=== PATIENT | male | born 1945 | race Caucasian/White ===

== ENCOUNTER 2019-05-22 05:40 | Outpatient (CLI) | payer MEDICARE ==
[~2019-05-22] VITALS: Ht 182 cm; Wt 109.0 kg
[2019-05-22] MEDS ORDERED: LISI2.5T PO (15:21)
== END 2019-05-22 15:27 | disposition home or self-care (01) ==
LOC: PREOP 05:40
PROVIDERS: ATTEND Specialist
DX: Z01.818 Encounter for other preprocedural examination (principal)

== ENCOUNTER 2019-05-24 06:52 | Day surgery (SDC) | payer MEDICARE ==
[~2019-05-24] VITALS: Ht 182 cm; Wt 109.0 kg
[~2019-05-24 06:52] MED LIST: LISI2.5T PO
[2019-05-24 06:57] VITALS: BP 118/77
[2019-05-24] MEDS ORDERED: MOXIFLOXACIN OPHTH SOLN 5 MG/ML 0.3 ML SYRINGE OP ONE (07:00)
[2019-05-24] MEDS ORDERED: TIMOLOL MALEATE 0.5% 5 ML (TIMOPTIC) BTL OU PRN (07:00)
[2019-05-24] MEDS ORDERED: LIDOCAINE PF 1% 2 ML VIAL IR PRN (07:00)
[2019-05-24] MEDS ORDERED: POVIDONE (BETADINE) OPHTH SOLN 5% 30 ML OP ONE (07:00)
[2019-05-24] MEDS: TETRACAINE 0.5% OPHTH SOLN 4 ML BTL (SINGLE DOSE ONLY) OU PRN ×4 (07:03→07:25)
[2019-05-24] MEDS: CYCLOPENTOLATE 1% (CYCLOGYL) 2 ML DROPS OP SCH ×3 (07:15→07:25)
[2019-05-24] MEDS: PHENYLEPHRINE 10% OPHTH (NEO-SYN) 5 ML BTL OU SCH ×3 (07:15→07:25)
--- NOTE | 2019-05-24 08:25 | Ophthalmologist Pre-Op Note ---
Pre-Operative Progress Note H&P Reviewed The H&P was reviewed, patient examined and no changes noted. Date H&P Reviewed: May 24, 2019 Time H&P Reviewed: 08:24 Pre-Op Dx Cataract, Right Eye CHRISTOPH CISNEROS MD May 24, 2019 08:25
[2019-05-24] MEDS ORDERED: MIDAZOLAM 2 MG/2 ML (VERSED) VIAL ONE (08:27)
[2019-05-24] MEDS ORDERED: acetaZOLAMIDE ER 500 MG CAP (DIAMOX SEQUELS) PO ONE (08:30)
--- NOTE | 2019-05-24 08:52 | Ophthalmology Operative Report ---
Cataract removal/placement IOL PREOPERATIVE DIAGNOSIS: Cataract Right Eye POSTOPERATIVE DIAGNOSIS: Cataract Right Eye PROCEDURE: Cataract removal and placement of posterior chamber implant, right eye SURGEON: Mario Cisneros ANESTHESIA: Topical with sedation COMPLICATIONS: None ESTIMATED BLOOD LOSS: Minimal DESCRIPTION OF PROCEDURE: After proper informed consent was obtained, the patient, a 74 male, was taken to the Operating Room and the right eye was anesthetized with tetracaine. The right eye was then prepped and draped in the usual manner. A wire lid speculum was placed. A paracentesis was made at the left hand position. Preservative free lidocaine was injected into the anterior chamber followed by viscoelastic. A clear corneal incision was made in the temporal position. A capsulorrhexis was preformed and the central nuclear and cortical material were removed. The posterior capsule was polished and Kemal 20.5 AU00T0 IOL was placed into the capsular bag. The residual viscoelastic was aspirated and balanced saline solution was injected into the anterior chamber. Moxifloxacin was injected into the anterior chamber. The wound was checked and found to be water tight. The patient tolerated the procedure well without complications. MARIO CISNEROS MD May 24, 2019 08:52
[2019-05-24 08:58] VITALS: BP 127/82
--- NOTE | 2019-05-24 14:25 | Anesthesia-General Post-Op ---
MAC Patient Condition Mental Status/LOC: Same as Preop Cardiovascular: Satisfactory Nausea/Vomiting: Absent Respiratory: Satisfactory Pain: Controlled Complications: Absent Post Op Complications Complications None Follow Up Care/Instructions Patient Instructions None needed. Anesthesiology Discharge Order Discharge Order Patient is doing well, no complaints, stable vital signs, no apparent adverse anesthesia problems. No complications reported per nursing. PINA SINGH CRNA May 24, 2019 14:25
== END 2019-05-24 08:58 | disposition home or self-care (01) ==
LOC: SDC 06:52
PROVIDERS: ATTEND Specialist
DX: H25.11 Age-related nuclear cataract, right eye (principal); I10 Essential (primary) hypertension; E66.9 Obesity, unspecified; M19.90 Unspecified osteoarthritis, unspecified site; Z68.32 Body mass index [BMI] 32.0-32.9, adult; Z87.891 Personal history of nicotine dependence; Z90.89 Acquired absence of other organs; Z83.518 Family history of other specified eye disorder; Z80.0 Family history of malignant neoplasm of digestive organs; Z83.3 Family history of diabetes mellitus

== ENCOUNTER 2019-06-07 09:21 | Day surgery (SDC) | payer MEDICARE ==
[~2019-06-07] VITALS: Ht 182.9 cm; Wt 109.0 kg
[2019-06-07] MEDS ORDERED: LIDOCAINE PF 1% 2 ML VIAL IR PRN (09:30)
[2019-06-07] MEDS ORDERED: POVIDONE (BETADINE) OPHTH SOLN 5% 30 ML OP ONE (09:30)
[2019-06-07] MEDS ORDERED: TIMOLOL MALEATE 0.5% 5 ML (TIMOPTIC) BTL OU PRN (09:30)
[2019-06-07] MEDS ORDERED: MOXIFLOXACIN OPHTH SOLN 5 MG/ML 0.3 ML SYRINGE OP ONE (09:30)
[2019-06-07] MEDS: TETRACAINE 0.5% OPHTH SOLN 4 ML BTL (SINGLE DOSE ONLY) OU PRN ×4 (09:30→09:51)
[2019-06-07 09:36] VITALS: BP 121/84
[2019-06-07] MEDS: PHENYLEPHRINE 10% OPHTH (NEO-SYN) 5 ML BTL OU SCH ×3 (09:39→09:51)
[2019-06-07] MEDS: CYCLOPENTOLATE 1% (CYCLOGYL) 2 ML DROPS OP SCH ×3 (09:39→09:51)
[2019-06-07] MEDS ORDERED: MIDAZOLAM 2 MG/2 ML (VERSED) VIAL ONE (10:09)
--- NOTE | 2019-06-07 10:10 | Ophthalmologist Pre-Op Note ---
Pre-Operative Progress Note H&P Reviewed The H&P was reviewed, patient examined and no changes noted. Date H&P Reviewed: Jun 07, 2019 Time H&P Reviewed: 10:10 Pre-Op Dx Cataract, Left Eye CHRISTOPH CISNEROS MD Jun 07, 2019 10:10
[2019-06-07] MEDS ORDERED: acetaZOLAMIDE ER 500 MG CAP (DIAMOX SEQUELS) PO ONE (10:30)
--- NOTE | 2019-06-07 10:35 | Ophthalmology Operative Report ---
Cataract removal/placement IOL PREOPERATIVE DIAGNOSIS: Cataract Left Eye POSTOPERATIVE DIAGNOSIS: Cataract Left Eye PROCEDURE: Cataract removal and placement of posterior chamber implant, left eye SURGEON: Mario Cisneros ANESTHESIA: Topical with sedation COMPLICATIONS: None ESTIMATED BLOOD LOSS: Minimal DESCRIPTION OF PROCEDURE: After proper informed consent was obtained, the patient, a 74 male, was taken to the Operating Room and the left eye was anesthetized with tetracaine. The left eye was then prepped and draped in the usual manner. A wire lid speculum was placed. A paracentesis was made at the left hand position. Preservative free lidocaine was injected into the anterior chamber followed by viscoelastic. A clear corneal incision was made in the temporal position. A capsulorrhexis was preformed and the central nuclear and cortical material were removed. The posterior capsule was polished and an Kemal 21.0 AU00T0 was placed into the capsular bag. The residual viscoelastic was aspirated and balanced saline solution was injected into the anterior chamber. Moxifloxacin was injected into the anterior chamber. The wound was checked and found to be water tight. The patient tolerated the procedure well without complications. MARIO CISNEROS MD Jun 07, 2019 10:35
[2019-06-07 10:42] VITALS: BP 112/76
--- NOTE | 2019-06-07 13:56 | Anesthesia-General Post-Op ---
MAC Patient Condition Mental Status/LOC: Same as Preop Cardiovascular: Satisfactory Nausea/Vomiting: Absent Respiratory: Satisfactory Pain: Controlled Complications: Absent Post Op Complications Complications None Follow Up Care/Instructions Patient Instructions None needed. Anesthesiology Discharge Order Discharge Order Patient is doing well, no complaints, stable vital signs, no apparent adverse anesthesia problems. No complications reported per nursing. CHANTE MARIA CRNA Jun 07, 2019 13:56
--- OUTSIDE RECORDS SUMMARY | 2019-06-11 07:31 | XMS REPORT | Continuity of Care Document ---
Author Organization Unknown Address Unknown Phone Unavailable Allergies Active Description Code Type Severity Reaction Onset Reported/Identified Relationship to Patient Clinical Status Yes No Known Drug Allergies [id number] Drug Allergy Unknown N/A 05/22/2019 Medications There is no data. Problems Date Dx Coded Attending Type Code Diagnosis Diagnosed By 05/22/2019 CHRISTOPH CISNEROS MD, Ot Z01.818 ENCOUNTER FOR OTHER PREPROCEDURAL EXAMIN 05/24/2019 CHRISTOPH CISNEROS MD, Ot E66 .9 OBESITY, UNSPECIFIED 05/24/2019 CHRISTOPH CISNEROS MD, Ot H25.11 AGE-RELATED NUCLEAR CATARACT, RIGHT EYE 05/24/2019 CHRISTOPH CISNEROS MD Ot I10 ESSENTIAL (PRIMARY) HYPERTENSION 05/24/2019 CHRISTOPH CISNEROS MD Ot M19.90 UNSPECIFIED OSTEOARTHRITIS, UNSPECIFIED 05/24/2019 CHRISTOPH CISNEROS MD Ot Z68.32 BODY MASS INDEX (BMI) 32.0-32.9, ADULT 05/24/2019 CHRISTOPH CISNEROS MD Ot Z80 .0 FAMILY HISTORY OF MALIGNANT NEOPLASM OF 05/24/2019 CHRISTOPH CISNEROS MD Ot Z83 .3 FAMILY HISTORY OF DIABETES MELLITUS 05/24/2019 CHRISTOPH CISNEROS MD Ot Z83.518 FAMILY HISTORY OF OTHER SPECIFIED EYE DI 05/24/2019 CHRISTOPH CISNEROS MD Ot Z87.891 PERSONAL HISTORY OF NICOTINE DEPENDENCE 05/24/2019 CHRISTOPH CISNEROS MD Ot Z90.89 ACQUIRED ABSENCE OF OTHER ORGANS 05/29/2019 CHRISTOPH CISNEROS MD, Ot E66 .9 OBESITY, UNSPECIFIED 05/29/2019 CHRISTOPH CISNEROS MD Ot H25.11 AGE-RELATED NUCLEAR CATARACT, RIGHT EYE 05/29/2019 CHRISTOPH CISNEROS MD Ot I10 ESSENTIAL (PRIMARY) HYPERTENSION 05/29/2019 CHRISTOPH CISNEROS MD Ot M19.90 UNSPECIFIED OSTEOARTHRITIS, UNSPECIFIED 05/29/2019 CHRISTOPH CISNEROS MD Ot Z68.32 BODY MASS INDEX (BMI) 32.0-32.9, ADULT 05/29/2019 CHRISTOPH CISNEROS MD, Ot Z80 .0 FAMILY HISTORY OF MALIGNANT NEOPLASM OF 05/29/2019 CHRISTOPH CISNEROS MD, Ot Z83 .3 FAMILY HISTORY OF DIABETES MELLITUS 05/29/2019 CHRISTOPH CISNEROS MD, Ot Z83.518 FAMILY HISTORY OF OTHER SPECIFIED EYE DI 05/29/2019 CHRISTOPH CISNEROS MD, Ot Z87.891 PERSONAL HISTORY OF NICOTINE DEPENDENCE 05/29/2019 CHRISTOPH CISNEROS MD, Ot Z90.89 ACQUIRED ABSENCE OF OTHER ORGANS Procedures There is no data. Results There is no data. Encounters ACCT No. Visit Date/Time Discharge Status Pt. Type Provider Facility Loc./Unit Complaint [id number] 06/07/2019 09:21:00 020 10:43:00 DIS Outpatient CHRISTOPH CISNEROS MD [facility] CATARACT LEFT EYE [id number] 05/24/2019 06:52:00 020 23:59:59 CLS Outpatient CHRISTOPH CISNEROS MD [facility] CATARACT RIGHT EYE [id number] 05/22/2019 05:40:00 020 15:27:00 DIS Outpatient CHRISTOPH CISNEROS MD Via [facility] PREOP CATARACT RIGHT EYE
== END 2019-06-07 10:43 | disposition home or self-care (01) ==
LOC: SDC 09:21
PROVIDERS: ATTEND Specialist
DX: H25.12 Age-related nuclear cataract, left eye (principal); I10 Essential (primary) hypertension; Z87.891 Personal history of nicotine dependence; Z79.899 Other long term (current) drug therapy; Z85.828 Personal history of other malignant neoplasm of skin